=== PATIENT | female | born 1930 | race African-American/Black ===

== ENCOUNTER 2016-11-18 15:30 | Inpatient (IN) | payer MEDICAID, OTHER ==
--- NOTE | 2016-11-18 15:33 | EDM.PDOC ---
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 Medical Record [OM.PC] Urgent Peripheral IV Insertion Adult [OM.PC] Stat Resuscitation Status Stat 11/18/16 16:06 RT Aerosol Therapy [RC] ASDIRECTED 11/18/16 16:45 Lactated Ringers @ 150 MLS/HR(1,000ml) Lactated Ringers [Ringers, Lactated] 1, 000 ml IV ASDIRECTED 11/18/16 Breakfast Nothing per Oral Now Diet [DIET] Assessment:: As above Plan: As above. Extensive precautions were given to the patient's family, who is in agreement with the treatment plan. Prognosis is extremely poor with comfort care only as above. The family wishes to wait on initiation of hospice at this time with the patient possibly not surviving the night. Lulu nieto physician assumes care in the a.m.
[2016-11-18] MEDS ORDERED: Famotidine 20 MG/2 ML SDV IVPUSH ONE (15:34)
[2016-11-18] MEDS ORDERED: Lactated Ringers 1,000 ML IV ONE (15:35)
[2016-11-18] MEDS ORDERED: Albuterol/Ipratropium 3.0-0.5 MG/3 ML Neb Soln NEB ONE (16:06)
[2016-11-18] MEDS ORDERED: Budesonide 0.5 MG/2 ML Neb Susp NEB ONE (16:06)
[2016-11-18 16:22] LABS: CHLORIDE,CL 108 mmol/L (98-107); SODIUM,NA 148 mmol/L (136-145)
[2016-11-18] MEDS ORDERED: Enoxaparin 40 MG/0.4 ML Syringe SUBCUT SCH (16:30)
[2016-11-18] MEDS: Lactated Ringers 1,000 ML IV SCH (16:49)
[2016-11-18] MEDS ORDERED: Sodium Chloride 0.9% 10 ML Syringe FLUSH PRN (17:25)
[2016-11-18] MEDS ORDERED: Albuterol 0.083% 2.5 MG/3 ML Neb Soln INH PRN (17:25)
[2016-11-18] MEDS ORDERED: Albuterol/Ipratropium 3.0-0.5 MG/3 ML Neb Soln NEB PRN (17:25)
[2016-11-18] MEDS ORDERED: Acetaminophen 650 MG Supp RECTAL PRN (17:29)
[2016-11-18] MEDS ORDERED: Cyanocobalamin (Vitamin B12) 1,000 MCG/ML SDV IM ONE (17:31)
[2016-11-18] MEDS: Metoprolol Tartrate 5 MG/5 ML SDV IVPUSH SCH (20:33)
[2016-11-18] MEDS: Albuterol/Ipratropium 3.0-0.5 MG/3 ML Neb Soln NEB SCH (20:33)
[2016-11-19] MEDS: Lactated Ringers 1,000 ML IV SCH ×2 (00:01→06:38)
[2016-11-19] MEDS: Albuterol/Ipratropium 3.0-0.5 MG/3 ML Neb Soln NEB SCH ×4 (02:09→19:47)
[2016-11-19] MEDS: Metoprolol Tartrate 5 MG/5 ML SDV IVPUSH SCH ×4 (02:09→19:47)
[2016-11-19 07:38] LABS: CHLORIDE,CL 110 mmol/L (98-107); SODIUM,NA 146 mmol/L (136-145)
--- NOTE | 2016-11-19 07:40 | PCM.SN ---
- Free Text/Narrative Note: Patient with significant progressive anemia this morning. Various therapeutic options were discussed with the patient's daughter and son-in-law, who are requesting a trial of a blood transfusion today despite her overall poor prognosis and comfort care status only. Initiate transfusion of 2 units of packed red blood cells and 2 units of fresh frozen plasma with patient still sedated and overly unresponsive. Questionable possible mild gross hematuria and hematochezia yesterday per nurse's history. No abdominal pain by palpation. Increase her current IV Pepcid therapy with additional high-dose IV Protonix. Patient somewhat more alert briefly yesterday evening, although she did experience an episode of PSVT with additional frequent PACs and a heart rate in the 120s yesterday evening. Family is still considering recommended hospice. Lulu nieto physician assumes care in about 30 minutes with progress note not completed secondary to continued required care, pending laboratories, etc.
[2016-11-19] MEDS: Pantoprazole 40 MG Vial IVPUSH SCH ×2 (08:41→19:48)
[2016-11-19] MEDS: Budesonide 0.5 MG/2 ML Neb Susp NEB SCH ×2 (08:42→19:47)
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
[2016-11-19] MEDS ORDERED: Furosemide 40 MG/4 ML VIAL IVPUSH ONE (13:14)
[2016-11-19] MEDS ORDERED: Furosemide 20 MG/2 ML VIAL IVPUSH ONE (13:15)
--- NOTE | 2016-11-19 15:08 | PCM.SN ---
- Free Text/Narrative Note: Patient's BP noted to be increasing steadily since blood infusion initiated. Diastolic now hovering around 100. Patient appears to be 3rd spacing on exam. Lungs however overall clear. No noted urine output since admission per nursing, despite recent IV Lasix. Given patient's current issues suspect renal system may be getting compromised. Will check CBC and BMP at 8pm tonight. Will hold FFP that has been ordered. Discussed current concerns with both patient's daughter and son-in-law. Family continues to want comfort care and does not want patient transferred to [place]. They are interested is speaking with hospice care. When told of hematoma noted on patient's right arm, they denied any knowledge of trauma or fall that may have caused it. They do say that she always wants to lay on her right side and right arm.
[2016-11-19] MEDS ORDERED: Famotidine 20 MG/2 ML SDV IVPUSH SCH (18:00)
[2016-11-19] MEDS: Sodium Chloride 0.9% 10 ML Syringe FLUSH PRN (18:40)
[2016-11-19] MEDS: Famotidine 20 MG/2 ML SDV IVPUSH SCH (18:40)
[2016-11-19 20:52] LABS: CHLORIDE,CL 107 mmol/L (98-107); SODIUM,NA 147 mmol/L (136-145)
[2016-11-20] MEDS: Albuterol/Ipratropium 3.0-0.5 MG/3 ML Neb Soln NEB SCH ×4 (03:28→19:18)
[2016-11-20] MEDS: Metoprolol Tartrate 5 MG/5 ML SDV IVPUSH SCH ×4 (03:28→19:19)
[2016-11-20] MEDS: Pantoprazole 40 MG Vial IVPUSH SCH ×2 (08:41→19:19)
[2016-11-20] MEDS: Famotidine 20 MG/2 ML SDV IVPUSH SCH ×2 (08:43→18:08)
[2016-11-20] MEDS: Budesonide 0.5 MG/2 ML Neb Susp NEB SCH ×2 (08:47→19:19)
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
[2016-11-21] MEDS: Albuterol/Ipratropium 3.0-0.5 MG/3 ML Neb Soln NEB SCH ×3 (02:14→13:40)
[2016-11-21] MEDS: Metoprolol Tartrate 5 MG/5 ML SDV IVPUSH SCH ×3 (02:15→13:40)
[2016-11-21] MEDS: Pantoprazole 40 MG Vial IVPUSH SCH (07:55)
[2016-11-21] MEDS: Famotidine 20 MG/2 ML SDV IVPUSH SCH (07:56)
[2016-11-21] MEDS: Budesonide 0.5 MG/2 ML Neb Susp NEB SCH (08:02)
[2016-11-21 08:08] LABS: CHLORIDE,CL 107 mmol/L (98-107); SODIUM,NA 148 mmol/L (136-145)
[2016-11-21] MEDS: Sodium Chloride 0.9% 10 ML Syringe FLUSH PRN ×2 (08:08→13:41)
--- NOTE | 2016-11-21 14:30 | PCM.DCSUM1 ---
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 swelling, no calf tenderness, edema (Trace to +1 bilateral pedal edema with DORIAN wraps and lower extremities bilaterally), other (Improved hematoma of the right humeral region) Skin: Reports: other (As above) Wound/Incisions: Reports: other (As above) Neurological: Reports: no new focal deficit Psy/Mental Status: Reports: alert. Denies: agitated, hallucinations, withdrawal symptoms EKG INTERPRETATION EKG Date: 11/21/16 Time: 07:24 Rhythm: NSR Rate (beats/min): 63 [place]: LAD-left axis deviation (Extended left cardiac axis) P-wave: enlarged (Mild diffuse biphasic) QRS: other (QRS interval of 0.12 seconds representing a complete bifascicular bundle-branch block with T-wave inversion in leads aVL, V1, V2) ST-T: other (As above) QT: normal NC/PQ Interval: NC interval is 0.08 seconds representing a short NC interval with no delta waves noted and extreme R-wave progression in the anterior leads Comparison: no change (Last EKG on 11/19/16) EKG Interpretation Comments: 1. Stable anterolateral cardiac ischemia 2. Complete bifascicular bundle-branch block 3. Short NC interval *Q Meaningful Use (DIS) - VTE *Q VTE Criteria *Q: - Stroke *Q Stroke Criteria *Q: - AMI *Q AMI Criteria *Q:
== END 2016-11-21 14:22 | disposition hospice, home (50) | DRG 947 ==
LOC: LL.ED 15:30 → LL.MS 16:52
PROVIDERS: ADMIT Family Medicine; ATTEND Family Medicine
PROC: 30233N1 Transfusion of Nonautologous Red Blood Cells into Peripheral Vein, Percutaneous Approach (ICD-10-PCS; 2016-11-19)
PROC: 30233K1 Transfusion of Nonautologous Frozen Plasma into Peripheral Vein, Percutaneous Approach (ICD-10-PCS; principal; 2016-11-20)
DX: R64 Cachexia (principal); R53.83 Other fatigue; I21.3 ST elevation (STEMI) myocardial infarction of unspecified site; T76.01XA Adult neglect or abandonment, suspected, initial encounter; R32 Unspecified urinary incontinence; M62.82 Rhabdomyolysis; K92.2 Gastrointestinal hemorrhage, unspecified; I44.2 Atrioventricular block, complete; Z99.3 Dependence on wheelchair; I50.9 Heart failure, unspecified; I10 Essential (primary) hypertension; L89.159 Pressure ulcer of sacral region, unspecified stage; S40.021A Contusion of right upper arm, initial encounter; X58.XXXA Exposure to other specified factors, initial encounter; Z51.5 Encounter for palliative care; I48.0 Paroxysmal atrial fibrillation; E86.0 Dehydration; E80.6 Other disorders of bilirubin metabolism; Z68.31 Body mass index [BMI] 31.0-31.9, adult; I49.3 Ventricular premature depolarization; E53.8 Deficiency of other specified B group vitamins; F41.8 Other specified anxiety disorders; M19.90 Unspecified osteoarthritis, unspecified site; E87.6 Hypokalemia; D64.9 Anemia, unspecified; I48.91 Unspecified atrial fibrillation; J44.9 Chronic obstructive pulmonary disease, unspecified; R62.7 Adult failure to thrive
CPT/HCPCS: 36415; 71010; 80053; 82248; 82550; 82553; 83605; 83735; 83880; 84443; 84484; 84550; 85025; 85379; 85610; 85730; 86318; 93005; 94640; 96361; 96374; 99285; J7120 ×2; 36430; 73060-RT; 80048; 82247; 82272; 86850; 86900; 86901; 86920; 86922; 87641; 94664; C9113; J1940; J3420; J3490; J7050; P9016; P9017; S0028

== ENCOUNTER 2016-11-21 13:02 | Inpatient (IN) | payer MEDICAID, OTHER ==
[2016-11-21] MEDS ORDERED: traMADol 50 MG Tab PO PRN (16:00)
[2016-11-21] MEDS ORDERED: Acetaminophen 325 MG Tab PO PRN (16:00)
[2016-11-21] MEDS ORDERED: Acetaminophen 650 MG Supp RECTAL PRN (16:00)
[2016-11-21] MEDS ORDERED: Albuterol 0.083% 2.5 MG/3 ML Neb Soln INH PRN (16:00)
[2016-11-21] MEDS ORDERED: Albuterol/Ipratropium 3.0-0.5 MG/3 ML Neb Soln NEB PRN (16:00)
[2016-11-21] MEDS: Omeprazole 20 MG Cap.CR PO SCH (17:51)
[2016-11-21] MEDS: Metoprolol Tartrate 5 MG/5 ML SDV IVPUSH SCH ×2 (17:51→21:05)
[2016-11-21] MEDS: Potassium Chloride 10% 20 MEQ/15 ML Soln 15 ML UD Cup PO SCH ×2 (19:17→19:37)
[2016-11-21] MEDS: Albuterol/Ipratropium 3.0-0.5 MG/3 ML Neb Soln NEB SCH (19:17)
[2016-11-22] MEDS: Albuterol/Ipratropium 3.0-0.5 MG/3 ML Neb Soln NEB SCH ×4 (02:31→19:07)
[2016-11-22] MEDS: Metoprolol Tartrate 5 MG/5 ML SDV IVPUSH SCH ×4 (04:12→21:02)
[2016-11-22] MEDS: Omeprazole 20 MG Cap.CR PO SCH ×2 (07:50→17:25)
[2016-11-22] MEDS: Furosemide 40 MG/4 ML VIAL IVPUSH SCH (07:51)
[2016-11-22] MEDS: Potassium Chloride 10% 20 MEQ/15 ML Soln 15 ML UD Cup PO SCH ×4 (07:52→19:07)
[2016-11-22] MEDS: Sodium Chloride 0.9% 10 ML Syringe FLUSH PRN ×3 (08:02→21:02)
[2016-11-23] MEDS: Albuterol/Ipratropium 3.0-0.5 MG/3 ML Neb Soln NEB SCH ×4 (03:04→19:23)
[2016-11-23] MEDS: Sodium Chloride 0.9% 10 ML Syringe FLUSH PRN ×4 (04:41→15:53)
[2016-11-23] MEDS: Metoprolol Tartrate 5 MG/5 ML SDV IVPUSH SCH ×4 (04:41→22:17)
[2016-11-23] MEDS: Omeprazole 20 MG Cap.CR PO SCH ×2 (07:32→17:17)
[2016-11-23] MEDS: Furosemide 40 MG/4 ML VIAL IVPUSH SCH (07:32)
[2016-11-23] MEDS: Potassium Chloride 10% 20 MEQ/15 ML Soln 15 ML UD Cup PO SCH ×4 (07:32→19:23)
[2016-11-24] MEDS: Albuterol/Ipratropium 3.0-0.5 MG/3 ML Neb Soln NEB SCH ×4 (03:11→19:49)
[2016-11-24] MEDS: Metoprolol Tartrate 5 MG/5 ML SDV IVPUSH SCH ×4 (04:38→22:18)
[2016-11-24] MEDS: Furosemide 40 MG/4 ML VIAL IVPUSH SCH ×3 (07:23→19:49)
[2016-11-24] MEDS: Potassium Chloride 10% 20 MEQ/15 ML Soln 15 ML UD Cup PO SCH (07:23)
[2016-11-24] MEDS: Omeprazole 20 MG Cap.CR PO SCH ×4 (07:23→18:31)
[2016-11-24] MEDS: Sodium Chloride 0.9% 10 ML Syringe FLUSH PRN ×7 (07:28→22:23)
[2016-11-24] MEDS: Morphine Oral Concentrate 20 MG/ML 30 ML Bottle SL SCH ×4 (10:15→22:23)
[2016-11-25] MEDS: Albuterol/Ipratropium 3.0-0.5 MG/3 ML Neb Soln NEB SCH ×4 (01:03→21:04)
[2016-11-25] MEDS: Morphine Oral Concentrate 20 MG/ML 30 ML Bottle SL SCH ×6 (01:03→21:28)
[2016-11-25] MEDS: Metoprolol Tartrate 5 MG/5 ML SDV IVPUSH SCH ×4 (04:32→22:56)
[2016-11-25] MEDS: Sodium Chloride 0.9% 10 ML Syringe FLUSH PRN ×4 (04:32→21:06)
[2016-11-25] MEDS: Furosemide 40 MG/4 ML VIAL IVPUSH SCH (04:35)
[2016-11-25] MEDS: Omeprazole 20 MG Cap.CR PO SCH ×2 (07:53→17:25)
[2016-11-26] MEDS: Morphine Oral Concentrate 20 MG/ML 30 ML Bottle SL SCH ×7 (02:04→23:04)
[2016-11-26] MEDS: Albuterol/Ipratropium 3.0-0.5 MG/3 ML Neb Soln NEB SCH ×4 (03:17→19:32)
[2016-11-26] MEDS: Metoprolol Tartrate 5 MG/5 ML SDV IVPUSH SCH ×4 (04:34→21:59)
[2016-11-26] MEDS: Sodium Chloride 0.9% 10 ML Syringe FLUSH PRN (07:47)
[2016-11-26] MEDS: Omeprazole 20 MG Cap.CR PO SCH ×2 (07:56→19:03)
[2016-11-26] MEDS ORDERED: FUROSEMIDE 40 MG/4 ML IVPUSH SCH (08:00)
[2016-11-26] MEDS ORDERED: Morphine Oral Concentrate 20 MG/ML 30 ML Bottle SL PRN (22:55)
[2016-11-27] MEDS ORDERED: Haloperidol Lactate 2 MG/ML Oral Soln 15 ML Bottle PO PRN (00:15)
[2016-11-27] MEDS: Albuterol/Ipratropium 3.0-0.5 MG/3 ML Neb Soln NEB SCH (03:45)
[2016-11-27] MEDS: Morphine Oral Concentrate 20 MG/ML 30 ML Bottle SL SCH (03:46)
--- NOTE | 2016-11-27 03:53 | PCM.SN ---
- Free Text/Narrative Note: Patient noted by nursing staff at 3am to not have audible heart beat and no noted respiratory effort. Patient examined. Time of declared at 3am.
--- NOTE | 2016-11-27 04:37 | PCM.DCSUM1 ---
Discharge Summary - Discharge Data Discharge Date: 11/27/16 Discharge Disposition: 20 Preliminary Cause of *Q: multi system organ failure Condition: - Discharge Diagnosis/Problem(s) (1) Anemia SNOMED Code(s): 020877295 ICD Code: D64.9 - ANEMIA, UNSPECIFIED Status: Acute Priority: High Current Visit: No Qualifiers: (2) Atrial fibrillation SNOMED Code(s): 49608634 ICD Code: I48.91 - UNSPECIFIED ATRIAL FIBRILLATION Status: Acute Priority : High Current Visit: No Onset Date: ~11/18/16 Problem Details: Comfort care only as below. Resolved at time of transfer and stable with IV Lopressor (3) CHF, Congestive heart failure SNOMED Code(s): 28130103 ICD Code: I50.9 - HEART FAILURE, UNSPECIFIED Status: Acute Priority: High Current Visit: No Onset Date: ~11/18/16 (4) COPD (chronic obstructive pulmonary disease) SNOMED Code(s): 70821451 ICD Code: J44.9 - CHRONIC OBSTRUCTIVE PULMONARY DISEASE, UNSPECIFIED Status : Acute Current Visit: No (5) Comfort measures only status SNOMED Code(s): 56375263991991 ICD Code: Z51.5 - ENCOUNTER FOR PALLIATIVE CARE Status: Acute Priority: High Current Visit: No Onset Date: 11/18/16 (6) Decubital ulcer SNOMED Code(s): 514211905 ICD Code: L89.90 - PRESSURE ULCER OF UNSPECIFIED SITE, UNSPECIFIED STAGE Status: Acute Priority: Low Current Visit: No (7) Dehydration SNOMED Code(s): 89657249 ICD Code: E86.0 - DEHYDRATION Status: Acute Priority: High Current Visit: No Onset Date: ~11/18/16 (8) Encounter for palliative care SNOMED Code(s): 394043109 ICD Code: Z51.5 - ENCOUNTER FOR PALLIATIVE CARE Status: Acute Priority: High Current Visit: No (9) Cachexia SNOMED Code(s): 926326098 ICD Code: R64 - CACHEXIA Status: Chronic Priority: High Current Visit: No - Patient Summary/Data Consults: Consultations 11/21/16 16:05 Consult to Hospice [CONS] Routine Hospital Course: Patient admitted to Hospice/[facility] for end of life care. - Discharge Plan Home Medications: Home Meds Citalopram [Celexa] 10 mg PO DAILY 11/18/16 [History] Cyanocobalamin (Vitamin B-12) [B-12] 1,000 mcg PO DAILY 11/18/16 [History] Lisinopril/Hydrochlorothiazide [Lisinopril-Hctz 20-12.5 mg Tab] 1 tab PO DAILY 11/18/16 [History] Metoprolol Tartrate [Lopressor] 100 mg PO DAILY 11/18/16 [History] Referrals: Myles Vogel PA [Primary Care Provider] - - Discharge Summary/Plan Comment DC Time >30 min.: No Discharge Summary/Plan Comment: [facility] will be picking up patient per request of family. - Patient Data Vitals - Most Recent: Last Vital Signs Temp 36.4 C 11/26/16 19:46 Pulse 117 H 11/26/16 21:59 Resp 3 L 11/26/16 19:46 BP 100/61 11/26/16 21:59 Pulse Ox 97 11/26/16 19:46 Weight - Most Recent: 32.659 kg Med Orders - Current: Current Medications Acetaminophen (Tylenol) 650 mg RECTAL Q4H PRN PRN Reason: Fever Acetaminophen (Tylenol) 650 mg PO Q4H PRN PRN Reason: Pain (Mild 1-3)/fever Albuterol (Proventil Neb Soln) 2.5 mg INH Q2H PRN PRN Reason: SHORTNESS OF BREATH Albuterol/Ipratropium (Duoneb 3.0-0.5 Mg/3 Ml) 3 ml NEB Q4HRRT PRN PRN Reason: Dyspnea Albuterol/Ipratropium (Duoneb 3.0-0.5 Mg/3 Ml) 3 ml NEB Q6HRRT [facility] Last Admin: 11/27/16 03:45 Dose: Not Given Furosemide (Lasix) 40 mg IVPUSH DAILY [facility] Last Admin: 11/26/16 07:47 Dose: 40 mg Haloperidol Lactate (Haldol 2 Mg/Ml Soln) 0.5 mg PO Q6HR PRN PRN Reason: Other Last Admin: 11/27/16 00:51 Dose: 0.5 mg Metoprolol Tartrate (Lopressor) 2.5 mg IVPUSH Q6H [facility] Last Admin: 11/26/16 21:59 Dose: Not Given Morphine Sulfate (Morphine 20 Mg/Ml Soln) 5 mg SL Q4H [facility] Last Admin: 11/27/16 03:46 Dose: Not Given Morphine Sulfate (Morphine 20 Mg/Ml Soln) 5 mg SL Q30M PRN PRN Reason: Pain (severe 7-10) Last Admin: 11/26/16 23:57 Dose: 5 mg Omeprazole (Omeprazole) 20 mg PO BIDAC [facility] Last Admin: 11/26/16 19:03 Dose: Not Given Sodium Chloride (Saline Flush) 10 ml FLUSH Q12H PRN PRN Reason: Keep Vein Open Last Admin: 11/25/16 21:06 Dose: 10 ml Sodium Chloride (Saline Flush) 10 ml FLUSH ASDIRECTED PRN PRN Reason: Keep Vein Open Last Admin: 11/26/16 07:47 Dose: 10 ml Tramadol HCl (Ultram) 50 mg PO Q6H PRN PRN Reason: Breakthrough Pain Discontinued Medications Furosemide (Lasix) 40 mg IVPUSH DAILY [facility] Last Admin: 11/24/16 07:23 Dose: 40 mg Furosemide (Lasix) 40 mg IVPUSH Q8H [facility] Last Admin: 11/25/16 04:35 Dose: 40 mg Morphine Sulfate (Morphine 20 Mg/Ml Soln) 2.5 mg SL Q4H [facility] Last Admin: 11/26/16 22:08 Dose: 2.5 mg Potassium Chloride (Potassium Chloride Solution) 40 meq PO QID [facility] Last Admin: 11/24/16 07:23 Dose: 40 meq *Q Meaningful Use (DIS) - VTE *Q VTE Criteria *Q: - Stroke *Q Stroke Criteria *Q: - AMI *Q AMI Criteria *Q:
== END 2016-11-27 04:55 | disposition expired ==
LOC: LL.MS 14:20
PROVIDERS: ADMIT Family Medicine; ATTEND Family Medicine
DX: I21.3 ST elevation (STEMI) myocardial infarction of unspecified site (principal); R64 Cachexia; M62.82 Rhabdomyolysis; I50.9 Heart failure, unspecified; D64.9 Anemia, unspecified; I48.91 Unspecified atrial fibrillation; E86.0 Dehydration; F41.8 Other specified anxiety disorders; E80.6 Other disorders of bilirubin metabolism; M19.90 Unspecified osteoarthritis, unspecified site; I49.3 Ventricular premature depolarization; J43.1 Panlobular emphysema; E87.6 Hypokalemia; S40.021A Contusion of right upper arm, initial encounter; X58.XXXA Exposure to other specified factors, initial encounter; Z79.899 Other long term (current) drug therapy; Z51.5 Encounter for palliative care
CPT/HCPCS: 36415; 80048; 80053; 82272; 82550; 82553; 83880; 84484; 85025; 85610; 85730; 94640; 94664; A9270-GY; J1940; J3490; J7050